=== PATIENT | female | born 1975 | race Caucasian/White ===

== ENCOUNTER 2025-02-28 17:29 | Emergency (ER) | payer OTHER, SELFPAY ==
[2025-02-28] VITALS (7 sets, daily range): BP systolic 132–164; BP diastolic 74–89; PULSE 80–96; RESP 15–20; TEMP 36.6–36.8; O2SAT 96–98; BMI 21.6
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
--- NOTE | 2025-02-28 20:11 | PC.NURSE ---
Moved to ED 27 from [facility] Chair 2 at this time. Teen daughter present.
[2025-02-28] MEDS: Lactated Ringers 1,000 ML 999 ML IV (21:06)
--- NOTE | 2025-02-28 21:12 | PC.NURSE ---
20g IV access established to left AC. Medicated per provider's orders. LR infusing wide open at this time. Primary RN Rebel Campbell aware. Plan for CT with contrast. Family at bedside.
[2025-02-28 21:29] LABS: MANUAL DIFF FLAG NO
[2025-02-28 21:31] LABS: Hematocrit 40.7 % (37.0-47.0); Hemoglobin 14.3 g/dl (12.0-16.0); Imm Gran Abs Auto 0.04 X10*3/uL (0.00-0.03); Imm Gran Pct Auto 0.3 % (0.0-0.4); Lymphocytes Absolute Auto 2.9 X10*3/uL (1.2-4.9); Mean Corpuscular HGB Conc 35.1 g/dl (31.0-35.0); Mean Corpuscular Hemoglobin 30.9 pg (27.0-33.0); Mean Corpuscular Volume 87.9 fL (80.0-98.0); NRBC Abs Auto 0.000 X10*3/uL (0.0-0.012); NRBC Pct Auto 0.0 /100WBC (0.0-0.2); Platelet Count 362 X10*3/uL (160-400); Red Blood Count 4.63 X10*6/uL (4.20-5.50); White Blood Count 13.2 X10*3/uL (4.8-10.8)
[2025-02-28 21:33] LABS: Appearance Urine Clear; Glucose Urine UA Negative (Negative); PH 5.5 (5.0-9.0); Specific Gravity - Urine 1.010 (1.005-1.025); UMIC TRIGGER UACC YES
[2025-02-28 21:45] LABS: Alanine Aminotransferase 19 U/L (0-31); Albumin Level 4.4 g/dL (3.5-5.0); Alkaline Phosphatase 67 U/L (39-117); Anion Gap 12 (12-20); Aspartate Amino Transferase 27 U/L (5-31); Blood Urea Nitrogen 13 mg/dL (9-16); Calcium 9.0 mg/dL (8.4-10.2); Carbon Dioxide 26 mmol/L (22-29); Chloride 107 mmol/L (96-108); Creatinine Clr Calc Pharmacy 73.7; Estimated Glomerular Filt Rate > 60; Lipase 15 U/L (8-78); Magnesium 2.1 mg/dL (1.6-2.6); Potassium 4.6 mmol/L (3.3-5.1); Sodium 140 mmol/L (135-145); Total Protein 6.7 g/dL (6.5-8.0)
[2025-02-28] MEDS: iohexoL 350 MG/ML 100 ML INFUS..BTL 85 ML IV (22:13)
[2025-03-01 02:21] VITALS: BP 110/66; PULSE 74; RESP 14; TEMP 36.6; O2SAT 97
[2025-03-01] MEDS: oxyCODONE HCl Immed Release 5 MG TABLET 10 MG PO (02:45)
[2025-03-01 03:45] VITALS: RESP 15
[2025-03-01 06:48] VITALS: BP 136/71; PULSE 74; RESP 16; TEMP 36.5; O2SAT 97
[2025-03-01 07:19] VITALS: BP 136/71; PULSE 74; RESP 16; TEMP 36.5; O2SAT 97
--- NOTE | 2025-03-01 07:20 | PC.NURSE ---
denies sob on d/c. ambulates without assist steadily
== END 2025-03-01 07:20 | disposition home or self-care (01) ==
PROVIDERS: Emergency Provider Emergency Medicine
DX: S29.8XXA Other specified injuries of thorax, initial encounter (principal); R07.89 Other chest pain; V43.52XA Car driver injured in collision with other type car in traffic accident, initial encounter; Y93.89 Activity, other specified; Y92.410 Unspecified street and highway as the place of occurrence of the external cause; Y99.8 Other external cause status
CPT/HCPCS: 36415; 70450; 71046; 71101; 71260; 72125; 73030; 74177; 80048; 80076; 81001; 83690; 83735; 85025; 96361; 96374; 96375; 99285; J1171; J2270; J2405; J7120; Q9967

== ENCOUNTER → 2025-02-28 18:06 | Outpatient (BNV) | payer OTHER, SELFPAY | PROVIDERS: Visit Provider Radiology Diagnostic Radiology | DX: K59.00 Constipation, unspecified (principal); J93.83 Other pneumothorax | CPT/HCPCS: 71260; 74177 ==

== ENCOUNTER → 2025-03-01 06:00 | Outpatient (BNV) | payer OTHER, SELFPAY | PROVIDERS: Emergency Provider Emergency Medicine; Visit Provider Radiology Diagnostic Radiology | DX: J93.9 Pneumothorax, unspecified (principal) | CPT/HCPCS: 71046 ==